=== PATIENT | male | born 1965 | race Caucasian/White ===

== ENCOUNTER 2021-10-30 12:51 | Outpatient (CLI) | payer OTHER ==
[~2021-10-30 12:51] MED LIST: ASCO-134 PO; ASPI-611 PO; CYCL-394 PO; ENOX40SY7 SUBCUT; FLUT16SP13 BOTHNARES; GABA-534 PO; GADOTERATE MEGLUMINE 7.5 MMOL/15 ML VIAL IV ONE; INSU100V43 SQ; INSU100V9 SQ; LEVO125T8 PO; MELA3TAB39 PO; NICO-687 TOP; PANT40TA54 PO; PRAM0.129 PO; PRAV40TA3 PO; ZINC50TA67 PO; [UNRECOGNIZED DRUG - CODE] PO
[2021-10-30] MEDS ORDERED: GADOTERATE MEGLUMINE 7.5 MMOL/15 ML VIAL IV ONE (16:10)
== END 2021-10-30 23:59 | disposition home or self-care (01) ==
LOC: RAD 12:51
PROVIDERS: ATTEND Specialist
DX: M47.812 Spondylosis without myelopathy or radiculopathy, cervical region (principal); M25.78 Osteophyte, vertebrae; M48.02 Spinal stenosis, cervical region; M41.82 Other forms of scoliosis, cervical region
CPT/HCPCS: 72156; A9575